=== PATIENT | male | born 1955 | race Caucasian/White ===

== ENCOUNTER 2022-04-29 13:41 | Observation (INO) ==
[2022-04-29 13:51] VITALS: BMI 23.8
[2022-04-29] MEDS ORDERED: NS 1,000 ML IV 1,000 ML ONE ×3 (14:03→16:43)
[2022-04-29] MEDS ORDERED: NS 1,000 ML IV 1,000 ML IV ONE ×2 (14:17→15:39)
--- NOTE | 2022-04-29 14:21 | DR.GENAD ---
HPI Time Seen Time Seen by Provider: 04/29/22 14:09 PCP Primary Care Physician: SOFIA HPI Comment HPI Comment: A 66 y/o male presenting with c/o passing out twice today. Initial episode he said was because he tripped on somethingwhile grocery shopping. 2nd occurence was at home and was upon arising. He was dizzy. He states that he has not eaten in past 2 days. Complaint/Symptoms Chief Complaint:: PT. C/O SYNCOPAL EPISODE AND FALLING TWICE TODAY. PT. C/O DIZZINESS, HEADACHE, BACK PAIN & WEAKNESS. PT. DID NOT EAT YESTERADY AND SIGNIFICANT OTHER STATES SHE BELEIVES PT. GOT TOO HOT OUTSIDE YESTERDAY. COVID-19 Coronavirus risk:travel/contact w/high risk person: No Has patient experienced Coronavirus symptoms: No Nurses notes reviewed Nurses Notes Review: Yes Source History Provided: Patient Mode of Arrival Mode of Arrival: Wheelchair Timing Onset of Chief Complaint: 04/29/22 Came on: Suddenly PMH PMH Past Medical History: Yes Past Medical History: Alzheimers, Coronary Artery Disease, Diabetes, Dy slipidemia, Hypertension and HI Past Surgical History: Yes Surgical History: Angioplasty/Stents and CABG/Valve Surgery Family History History of Family Medical Conditions: Yes Family Medical History: HI, Coronary Artery Disease and Hypertension Social History Does patient currently use any type of tobacco product: No Have you used tobacco products in the last 12 months: No Type of Tobacco Use: None Does any household member use tobacco: No Alcohol Use: None Do you use any recreational Drugs:: No Lives With: Significant Other Lives Where: Home Travel Risk Coronavirus risk:travel/contact w/high risk person: No Has patient experienced Coronavirus symptoms: No Infectious screening In the last 2 months have you had wt loss of >10#?: NO Have you had fever, night sweats or hemotysis?: No Have you traveled outside the country in the last 6 months?: No Isolation: Standard ROS Review of Systems Constitutional: No Symptoms Reported Eyes: No Symptoms Reported ENTM: No Symptoms Reported Respiratoy: No Symptoms Reported Cardiovascular: No Symptoms Reported Gastrointestinal/Abdominal: No Symptoms Reported Genitourinary: No Symptoms Reported Neurological: Other (Syncope) Musculoskeletal: No Symptoms Reported Integumentary: No Symptoms Reported Hematologic/Lymphatic: No Symptoms Reported Endocrine: No Symptoms Reported Psychiatric: No Symptoms Reported PE Vital Signs Vitals: Temperature 97.9 F Pulse Rate 83 Respiratory Rate 16 Blood Pressure [Left Arm] 141/82 Blood Pressure 141/64 O2 Sat by Pulse Oximetry 100 General Limitations: No Limitations General Appearance: Alert and In No Apparent Distress Head Head Exam: Normal Inspection, Atraumatic and Normocephalic Eyes Eye exam: Normal Appearance and EOMI ENT ENT Exam: Normal Exam, Normal Oropharynx, Normal External Ear Exam and Mucous Membranes Moist Neck Neck Exam: Normal Inspection, Full ROM and Trachea Midline Chest Chest Inspection: Normal Inspection and Symmetric Chest Wall Rise Respiratory Respiratory Exam: Normal Lung Sounds Bilat Cardiovascular Cardiovascular Exam: Regular Rate, Normal Rhythm, Normal Heart Sounds, +S1 and +S2 Abdominal Exam Abdominal Exam: Normal Inspection, Normal Bowel Sounds and Soft Extremities Extremities Exam: Normal Inspection and Full ROM Back Back Exam: Normal Inspection and Full ROM Neurologic Neurological Exam: Alert and Oriented X3 Psychiatric Psychiatric Exam: Normal Affect and Normal Mood Skin Skin Exam: Intact COURSE Treatment Treatment: His labs were reviewed with him with my recommendation fo admission. He consented to this. I then spoke with Dr. ORTIZ about the pt. she also agreed with recommendation for admission. Admit orders were written. Reevaluation 1st: Improved Education/Counseling Education/Counseling: Patient, Family, Education and Counseling Educated On: Treatment, Diagnosis, Prognosis and Needs for Follow Up ROR Labs Reviewed Result Diagrams: 04/29/22 14:15 04/29/22 14:15 Laboratory: WBC 12.0 X10^3/uL (3.6-10.0) H 04/29/22 14:15 RBC 4.76 X10^6/uL (4.7-6.0) 04/29/22 14:15 Hgb 14.5 g/dL (13.5-18.0) 04/29/22 14:15 Hct 41.6 % (42.0-54.0) L 04/29/22 14:15 MCV 87.3 fL (80.0-100.0) 04/29/22 14:15 MCH 30.5 pg (27.0-34.0) 04/29/22 14:15 MCHC 34.9 g/dL (33.0-35.0) 04/29/22 14:15 RDW 13.9 % (11.6-16.5) 04/29/22 14:15 Plt Count 295 X10^3/uL (150.0-450.0) 04/29/22 14:15 MPV 9.9 fL (7.4-11.0) 04/29/22 14:15 Neut % (Auto) 71.2 % (42.0-75.0) 04/29/22 14:15 Lymph % (Auto) 17.3 % (21.0-51.0) L 04/29/22 14:15 [place] % (Auto) 9.6 % (0.0-13.0) 04/29/22 14:15 Eos % (Auto) 1.2 % (0.9-2.9) 04/29/22 14:15 Baso % (Auto) 0.7 % (0.2-1.0) 04/29/22 14:15 Neut # (Auto) 8.5 x10^3/uL (2.2-4.8) H 04/29/22 14:15 Lymph # (Auto) 2.1 X10^3/uL (1.3-2.9) 04/29/22 14:15 [place] # (Auto) 1.1 x10^3/uL (0.3-0.8) H 04/29/22 14:15 Eos # (Auto) 0.1 x10^3/uL (0.0-0.2) 04/29/22 14:15 Baso # (Auto) 0.1 X10^3/uL (0.0-0.1) 04/29/22 14:15 Absolute Nucleated RBC 0.0 /100WBC 04/29/22 14:15 Sodium 126 mmol/L (136-145) L 04/29/22 14:15 Corrected Sodium 130 mmol/L (136-145) L 04/29/22 14:15 Potassium 4.5 mmol/L (3.5-5.1) 04/29/22 14:15 Chloride 92 mmol/L (98-107) L 04/29/22 14:15 Carbon Dioxide 17.9 mmol/L (21-32) L 04/29/22 14:15 BUN 65 mg/dL (7-18) H 04/29/22 14:15 Creatinine 3.45 mg/dL (0.70-1.30) H 04/29/22 14:15 Est GFR (MDRD) Af Amer 23 (>60) L 04/29/22 14:15 Est GFR (MDRD) Non-Af 19 (>60) L 04/29/22 14:15 Glucose 253 mg/dL (65-99) H 04/29/22 14:15 Calcium 9.1 mg/dL (8.5-10.1) 04/29/22 14:15 Corrected Calcium TNP 04/29/22 14:15 Total Bilirubin 0.50 mg/dL (0.2-1.0) 04/29/22 14:15 AST 44 Units/L (15-37) H 04/29/22 14:15 ALT 22 Units/L (12-78) 04/29/22 14:15 Alkaline Phosphatase 93 Units/L (46-116) 04/29/22 14:15 Total Protein 7.4 g/dL (6.4-8.2) 04/29/22 14:15 Albumin 3.4 g/dL (3.4-5.0) 04/29/22 14:15 Globulin 4.0 g/dL (2.5-4.5) 04/29/22 14:15 Albumin/Globulin Ratio 0.9 Ratio (1.1-2.1) L 04/29/22 14:15 Specimen Type Clean catch urine 04/29/22 15:05 Urine Color Yellow (YELLOW) 04/29/22 15:05 Urine Appearance Slightly hazy (CLEAR) 04/29/22 15:05 Urine pH 5.0 (5.0 - 8.0) 04/29/22 15:05 Ur Specific [place] 1.025 (1.000-1.030) 04/29/22 15:05 Urine Protein 2+ (NEGATIVE) 04/29/22 15:05 Urine Glucose (UA) 4+ (NEGATIVE) 04/29/22 15:05 Urine Ketones Negative (NEGATIVE) 04/29/22 15:05 Urine Blood Negative (NEGATIVE) 04/29/22 15:05 Urine Nitrite Negative (NEGATIVE) 04/29/22 15:05 Urine Bilirubin 1+ (NEGATIVE) 04/29/22 15:05 Urine Urobilinogen Normal (NORMAL) 04/29/22 15:05 Ur Leukocyte Esterase Negative (NEGATIVE) 04/29/22 15:05 Urine RBC 3-5 /HPF (0-3) A 04/29/22 15:05 Urine WBC 3-5 /HPF (0-5) 04/29/22 15:05 Ur Squamous Epith Cells Few /HPF (NEGATIVE) 04/29/22 15:05 Amorphous Sediment 1+ /HPF (NEGATIVE) 04/29/22 15:05 Urine Bacteria Trace /HPF (NEGATIVE) 04/29/22 15:05 Hyaline Casts Many /LPF (NEGATIVE) 04/29/22 15:05 Urine Mucus Few /HPF (NEGATIVE) 04/29/22 15:05 Ur Culture Indicated? No/not indicated 04/29/22 15:05 EKG Rate: 89 [place]: Normal Rhythm: NSR Block: None Hypertrophy: None ST: Old, Inf and Infarct Opioid Opioid Risk Tool Age ([place] box if 16-45): No History of Preadolescent Sexual Abuse: No Total: 0 Total Score Risk Category: Low Risk Copyright: [facility] predicting aberrant behaviors Diagnosis Discharge Problem: Acute renal failure Qualifiers: Acute renal failure type: unspecified Qualified Code(s): N17.9 - Acute kidney failure, unspecified Syncope Qualifiers: Syncope type: unspecified Qualified Code(s): R55 - Syncope and collapse Diabetes mellitus Qualifiers: Diabetes mellitus type: type 2 Diabetes mellitus mcfp insulin use: unspecified mcfp insulin use status Diabetes mellitus complication status: with kidney complications Diabetes mellitus complication detail: with other kidney complication Qualified Code(s): E11.29 - Type 2 diabetes mellitus with other diabetic kidney complication ADDITIONAL NOTES Additional Notes Additional Notes: [facility] [id number]: [id number] : 1955Sex: MLocation: ER Order Number(s): [id number](s):BRAIN W/O CON Ordering Physician: LORRAINE MEYER Primary Care: RAYSHAWN BLACK Service Date: 04/29/22 Service Time: 1427 HISTORY Dizziness, syncope STUDY CT head without contrast Technique: Axial noncontrast images with coronal and sagittal reformats. Dose reduction procedures were used with mA/kv adjusted for body size. COMPARISON None FINDINGS The ventricles are normal in size shape and position. There is mild cortical atrophy present. There are no focal areas of abnormal attenuation to suggest recent or remote CVA, hemorrhage, contusion, mass lesion, or extra-axial fluid collection. There are some benign appearing cerebellar calcifications present possibly due to prior infection. The visualized sinuses are clear. The calvarium is intact. IMPRESSION No significant intracranial abnormality identified Electronically signed by: ANH NJ (Apr 29, 2022 14:57:50) Report Electronically signed: 04/29/22 1459 CC: Lorraine Meyer
[2022-04-29 14:22] LABS: BASOPHILS # (AUTO) 0.1 X10^3/uL (0.0-0.1); BASOPHILS % (AUTO) 0.7 % (0.2-1.0); EOSINOPHILS # (AUTO) 0.1 x10^3/uL (0.0-0.2); EOSINOPHILS % (AUTO) 1.2 % (0.9-2.9); HEMATOCRIT 41.6 % (42.0-54.0); HEMOGLOBIN 14.5 g/dL (13.5-18.0); LYMPHOCYTES # (AUTO) 2.1 X10^3/uL (1.3-2.9); LYMPHOCYTES % (AUTO) 17.3 % (21.0-51.0); MEAN CORPUSCULAR HEMOGLOBIN 30.5 pg (27.0-34.0); MEAN CORPUSCULAR HGB CONC 34.9 g/dL (33.0-35.0); MEAN CORPUSCULAR VOLUME 87.3 fL (80.0-100.0); MEAN PLATELET VOLUME 9.9 fL (7.4-11.0); MONOCYTES # (AUTO) 1.1 x10^3/uL (0.3-0.8); MONOCYTES % (AUTO) 9.6 % (0.0-13.0); NEUTROPHILS # (AUTO) 8.5 x10^3/uL (2.2-4.8); NEUTROPHILS % (AUTO) 71.2 % (42.0-75.0); RED BLOOD COUNT 4.76 X10^6/uL (4.7-6.0); RED CELL DISTRIBUTION WIDTH 13.9 % (11.6-16.5)
[2022-04-29 14:35] LABS: ALANINE AMINOTRANSFERASE 22 Units/L (12-78); ALBUMIN 3.4 g/dL (3.4-5.0); ALKALINE PHOSPHATASE 93 Units/L (46-116); ASPARTATE AMINO TRANSFERASE 44 Units/L (15-37); BLOOD UREA NITROGEN 65 mg/dL (7-18); CALCIUM 9.1 mg/dL (8.5-10.1); CARBON DIOXIDE 17.9 mmol/L (21-32); CHLORIDE 92 mmol/L (98-107); COR NA(FOR HYPERGLY) 130 mmol/L (136-145); CREATININE 3.45 mg/dL (0.70-1.30); SODIUM 126 mmol/L (136-145); TOTAL PROTEIN 7.4 g/dL (6.4-8.2); eGFR NON BLACK RACES 19 (>60)
--- NOTE | 2022-04-29 14:59 | CT ---
HISTORYDizziness, syncopeSTUDYCT head without contrastTechnique: Axial noncontrast images with coronal and sagittal reformats. Dose reduction procedures were used with mA/kv adjusted for body size.COMPARISONNoneFINDINGSThe ventricles are normal in size shape and position. There is mild cortical atrophy present. There are no focal areas of abnormal attenuation to suggest recent or remote CVA, hemorrhage, contusion, mass lesion, or extra-axial fluid collection. There are some benign appearing cerebellar calcifications present possibly due to prior infection. The visualized sinuses are clear. The calvarium is intact.IMPRESSIONNo significant intracranial abnormality identifiedElectronically signed by: ANH NJ (Apr 29, 2022 14:57:50)
[2022-04-29 15:24] LABS: BILIRUBIN,URINE 1+ (NEGATIVE); BLOOD/HEMOGLOBIN,URINE NEGATIVE (NEGATIVE); GLUCOSE, URINE 4+ (NEGATIVE); KETONES,URINE NEGATIVE (NEGATIVE); LEUKOCYTE ESTERASE ,URINE NEGATIVE (NEGATIVE); NITRITES,URINE NEGATIVE (NEGATIVE); PROTEIN,URINE 2+ (NEGATIVE); UROBILINOGEN,URINE NORMAL (NORMAL)
[2022-04-29 15:41] LABS: APPEARANCE,URINE SLIGHTLY HAZY (CLEAR); BACTERIA,URINE TRACE /HPF (NEGATIVE); COLOR,URINE YELLOW (YELLOW); SQUAMOUS EPITHELIAL CELL,UR FEW /HPF (NEGATIVE)
[2022-04-29 15:42] LABS: HYALINE CASTS, URINE MANY /LPF (NEGATIVE)
[2022-04-29] MEDS: NS 1,000 ML IV 1,000 ML IV SCH (17:04)
[2022-04-29] MEDS ORDERED: NovoLIN R (or HumuLIN R) SUBCUT PRN (17:33)
[2022-04-29] MEDS: SNACK - Diabetic Appropriate PO SCH (20:00)
[2022-04-30] MEDS: NS 1,000 ML IV 1,000 ML IV SCH ×3 (03:49→17:34)
[2022-04-30 06:21] LABS: BASOPHILS # (AUTO) 0.1 X10^3/uL (0.0-0.1); EOSINOPHILS # (AUTO) 0.4 x10^3/uL (0.0-0.2); EOSINOPHILS % (AUTO) 5.3 % (0.9-2.9); HEMATOCRIT 39.2 % (42.0-54.0); HEMOGLOBIN 13.6 g/dL (13.5-18.0); LYMPHOCYTES # (AUTO) 2.1 X10^3/uL (1.3-2.9); LYMPHOCYTES % (AUTO) 24.7 % (21.0-51.0); MEAN CORPUSCULAR HEMOGLOBIN 30.3 pg (27.0-34.0); MEAN CORPUSCULAR HGB CONC 34.6 g/dL (33.0-35.0); MEAN CORPUSCULAR VOLUME 87.6 fL (80.0-100.0); MEAN PLATELET VOLUME 9.6 fL (7.4-11.0); MONOCYTES # (AUTO) 0.8 x10^3/uL (0.3-0.8); MONOCYTES % (AUTO) 9.6 % (0.0-13.0); NEUTROPHILS # (AUTO) 5.1 x10^3/uL (2.2-4.8); NEUTROPHILS % (AUTO) 59.4 % (42.0-75.0); RED BLOOD COUNT 4.48 X10^6/uL (4.7-6.0); RED CELL DISTRIBUTION WIDTH 13.9 % (11.6-16.5); WHITE BLOOD COUNT 8.5 X10^3/uL (3.6-10.0)
[2022-04-30 06:34] LABS: ALANINE AMINOTRANSFERASE 20 Units/L (12-78); ALKALINE PHOSPHATASE 82 Units/L (46-116); ASPARTATE AMINO TRANSFERASE 18 Units/L (15-37); BLOOD UREA NITROGEN 47 mg/dL (7-18); CALCIUM 8.7 mg/dL (8.5-10.1); CARBON DIOXIDE 21.3 mmol/L (21-32); CHLORIDE 102 mmol/L (98-107); COR CA(FOR HYPOALB) 9.5 mg/dL (8.5-10.1); CREATININE 1.67 mg/dL (0.70-1.30); SODIUM 134 mmol/L (136-145); TOTAL PROTEIN 6.3 g/dL (6.4-8.2); eGFR NON BLACK RACES 44 (>60)
[2022-04-30] MEDS: PLAVIX PO SCH (10:15)
[2022-04-30] MEDS: ARICEPT TAB 10 MG PO SCH ×2 (10:15→20:24)
[2022-04-30] MEDS: ASPIRIN EC 81 MG PO SCH (10:15)
[2022-04-30] MEDS: ACTOS PO SCH (10:15)
[2022-04-30] MEDS: PLETAL PO SCH ×2 (10:16→20:24)
[2022-04-30] MEDS: SNACK - Diabetic Appropriate PO SCH (20:30)
[2022-05-01] MEDS: NS 1,000 ML IV 1,000 ML IV SCH ×2 (00:36→03:25)
[2022-05-01 05:24] LABS: BASOPHILS # (AUTO) 0.1 X10^3/uL (0.0-0.1); BASOPHILS % (AUTO) 1.4 % (0.2-1.0); EOSINOPHILS # (AUTO) 0.6 x10^3/uL (0.0-0.2); EOSINOPHILS % (AUTO) 8.4 % (0.9-2.9); HEMATOCRIT 37.6 % (42.0-54.0); LYMPHOCYTES # (AUTO) 2.2 X10^3/uL (1.3-2.9); LYMPHOCYTES % (AUTO) 29.7 % (21.0-51.0); MEAN CORPUSCULAR HEMOGLOBIN 30.4 pg (27.0-34.0); MEAN CORPUSCULAR HGB CONC 34.7 g/dL (33.0-35.0); MEAN CORPUSCULAR VOLUME 87.6 fL (80.0-100.0); MEAN PLATELET VOLUME 9.7 fL (7.4-11.0); MONOCYTES # (AUTO) 0.8 x10^3/uL (0.3-0.8); MONOCYTES % (AUTO) 11.1 % (0.0-13.0); NEUTROPHILS # (AUTO) 3.7 x10^3/uL (2.2-4.8); NEUTROPHILS % (AUTO) 49.4 % (42.0-75.0); RED BLOOD COUNT 4.29 X10^6/uL (4.7-6.0); RED CELL DISTRIBUTION WIDTH 13.8 % (11.6-16.5); WHITE BLOOD COUNT 7.5 X10^3/uL (3.6-10.0)
[2022-05-01 05:35] LABS: ALANINE AMINOTRANSFERASE 20 Units/L (12-78); ALBUMIN 2.9 g/dL (3.4-5.0); ALKALINE PHOSPHATASE 74 Units/L (46-116); ASPARTATE AMINO TRANSFERASE 14 Units/L (15-37); BLOOD UREA NITROGEN 33 mg/dL (7-18); CALCIUM 8.6 mg/dL (8.5-10.1); CARBON DIOXIDE 23.8 mmol/L (21-32); CHLORIDE 105 mmol/L (98-107); COR CA(FOR HYPOALB) 9.5 mg/dL (8.5-10.1); CREATININE 1.13 mg/dL (0.70-1.30); SODIUM 136 mmol/L (136-145); eGFR NON BLACK RACES > 60 (>60)
[2022-05-01 08:15] VITALS: BP 148/68
[2022-05-01] MEDS: ARICEPT TAB 10 MG PO SCH (09:15)
[2022-05-01] MEDS: ACTOS PO SCH (09:15)
[2022-05-01] MEDS: ASPIRIN EC 81 MG PO SCH (09:15)
[2022-05-01] MEDS: PLAVIX PO SCH (09:16)
[2022-05-01] MEDS: PLETAL PO SCH (09:16)
== END 2022-05-01 09:47 | disposition home or self-care (01) ==
LOC: MED/SURG 13:47 → ER 13:47 → MED/SURG 17:49
PROVIDERS: ADMIT Internal Medicine; ATTEND Obstetrics & Gynecology Obstetrics
DX: E87.1 Hypo-osmolality and hyponatremia; E78.2 Mixed hyperlipidemia; R42 Dizziness and giddiness; R51.9 Headache, unspecified; E86.0 Dehydration; I25.10 Atherosclerotic heart disease of native coronary artery without angina pectoris; N17.8 Other acute kidney failure; I10 Essential (primary) hypertension; F30.8 Other manic episodes; R94.31 Abnormal electrocardiogram [ECG] [EKG]; R74.8 Abnormal levels of other serum enzymes; E11.65 Type 2 diabetes mellitus with hyperglycemia; Z20.822 Contact with and (suspected) exposure to COVID-19